=== PATIENT | male | born 1970 | race Caucasian/White ===

== ENCOUNTER → 2019-12-10 | Outpatient (CLI) | payer MEDICAID ==
--- NOTE | 2019-12-10 11:25 | ECHOS ---
STRESS ECHOCARDIOGRAM INDICATIONS: Syncope and collapse MEDICATIONS: None BASELINE HEART RATE: 78 BASELINE BLOOD PRESSURE: 123/77 MAXIMUM HEART RATE: 147 MAXIMUM BLOOD PRESSURE: 190/97 85% MPHR: 145 100% MPHR: 170 METS: 7.7 MAXIMUM STAGE REACHED: II TOTAL EXERCISE TIME: 6:52 CLINICAL INFORMATION: Baseline EKG revealed normal sinus rhythm with voltage criteria for LVH. Patient walked on standard Martinez protocol for 6 minutes 52 seconds, achieved a maximal heart rate of 147 beats per minute which is 85% of predicted maximal. He developed fatigue and shortness of breath but did not have any angina or arrhythmia. EKG did not reveal any ST-segment changes to indicate ischemia. By EKG criteria, this is a negative stress test with limited exercise capacity. Rare PVCs were noted. No angina was reported. Baseline echo images revealed normal wall motion and wall thickening of all segments. At peak exercise, there was good augmentation of different wall motion wall thickening of all segments suggesting that there is no evidence of stress-induced ischemia on this study. IMPRESSION: 1. Fair exercise capacity with a negative stress test by EKG criteria. 2. Normal stress echocardiogram without evidence of ischemia. MMODL / IJN: [id number] /
== END | disposition home or self-care (01) ==
LOC: RADNMMAIN 08:53
PROVIDERS: ATTEND Family Medicine
DX: R55 Syncope and collapse (principal)
CPT/HCPCS: 93351